=== PATIENT | female | born 1990 | race Caucasian/White ===

== ENCOUNTER 2020-09-12 14:39 | Emergency (ER) | payer OTHER, SELFPAY ==
--- NOTE | ~2020-09-12 | XR_ITS ---
EXAMINATION: XR chest 2V EXAM DATE: 09/12/2020 15:21 INDICATION: Left-sided chest pain, injury. Initial encounter. TECHNIQUE: Frontal and lateral projections of the chest obtained and reviewed. Comparison is made to prior examination from 07/14/2019. FINDINGS: The lungs are clear. There are no pleural effusions. The cardiomediastinal silhouette is within normal limits. There is no pneumothorax suspected. The bones and soft tissues are unremarkab le. Consider educating patient that even if there is a radiographically occult nondisplaced rib fra cture, there is no specific treatment other than to refrain from activity that prevents healing. IMPRESSION: No acute cardiopulmonary findings. Reviewed, dictated and finalized at location A.
[2020-09-12 14:46] VITALS: BP 120/82; PULSE 72; RESP 16; TEMP 36.7; O2SAT 100
--- NOTE | 2020-09-12 14:53 | ECG_ITS ---
Measurements Intervals [place] Rate: 70 P: -12 CA: 136 QRS: 72 QRSD: 87 T: 6 QT: 389 QTc: 422 Interpretive Statements SINUS RHYTHM BORDERLINE ST-T WAVE ABNORMALITY- INFERIOR LEADS BASELINE ARTIFACT- I, II, III, AVR, AVL, AVF BORDERLINE ECG Electronically Signed On 09-12-2020 15:30:30 CDT by Cesar Beasley D.O.
[2020-09-12 15:24] LABS: Basophils Percent Auto 0.4 % (0.2-1.2); Eosinophils Absolute Auto 0.1 K/mm3 (0-0.3); Hematocrit 41.1 % (37.0-47.0); Hemoglobin 13.8 g/dL (12.0-15.0); Immature Granulocyte Absolute 0.02 K/mm3 (0.00-0.031); Immature Granulocyte Percent A 0.3 % (0-0.5); Lymphocytes Absolute Auto 2.27 K/mm3 (0.9-3.2); Mean Corpuscular HGB Conc 33.6 g/dl (32-36); Mean Corpuscular Volume 95.4 fl (80-100); Mean Platelet Volume 10.4 fl (7.4-10.4); Monocytes Absolute Auto 0.4 K/mm3 (0.1-0.6); Monocytes Percent Auto 6.1 % (2.6-8.5); Neutrophils Absolute Auto 4.3 K/mm3 (1.3-6.7); Neutrophils Percent Auto 60.2 % (45.5-73.1); Platelet Count Result 285 k/mm3 (150-375); Red Blood Count 4.31 M/mm3 (4.2-5.4); White Blood Count 7.1 K/mm3 (4.5-10.0)
[2020-09-12 15:39] LABS: Anion Gap 4 mmol/L (8-16); Blood Urea Nitrogen 6 mg/dL (7-17); Calcium 9.1 mg/dL (8.4-10.2); Carbon Dioxide 27 mmol/L (22-30); Chloride 107 mmol/L (98-107); Estimated CRCL calculation 91 ml/min; Estimated Glomerular Filt Rate > 60; Glucose 87 mg/dL (65-105); Potassium 3.6 mmol/L (3.4-5.0); Sodium 138 mmol/L (137-145)
[2020-09-12 15:46] LABS: INR 0.9; Prothrombin Time 13.2 Seconds (11.1-14.7)
[2020-09-12 15:47] LABS: Partial Thromboplastin Time 28.9 SECONDS (22.3-36.8)
[2020-09-12 15:50] LABS: Troponin I < 0.012 ng/mL (0.000-0.034)
[2020-09-12 16:25] VITALS: PULSE 66
[2020-09-12 16:26] VITALS: BP 113/84; PULSE 66; RESP 16; TEMP 36.8; O2SAT 98
--- NOTE | 2020-09-12 16:49 | ED.CHESTPAIN ---
HPI - Chest Pain General Chief Complaint: Chest Pain Stated Complaint: injury to chest Time Seen by Provider: 09/12/20 16:18 Source: patient Mode of arrival: ambulatory Limitations: no limitations History of Present Illness HPI narrative: 30-year-old with no major medical problems here with complaints of left-sided chest pain for past 3 days. Patient states her 3-year-old jumped on her left side of her chest approximately 3 days ago and ever since then she has been having left-sided chest pain. She states that it is hard to take a deep breath because of the pain. She denies any shortness of breath, fever or chills. She states that her daughter is about 50 pounds. complaint: chest pain Onset: other (injury) Pain location: left chest Quality: aching Relieving factors: nothing Risk Factors Coronary artery disease risk factors: none Related Data Home Medications Medication Instructions Recorded Confirmed norethindrone-e.estradiol-iron 1 tablet PO DAILY 06/30/19 06/30/19 [07/19 (28)] Allergies Allergy/AdvReac Type Severity Reaction Status Date / Time No Known Allergies Allergy Verified 07/14/19 10:38 Review of Systems Review of Systems: All systems reviewed & are unremarkable except as noted in HPI and below Constitutional: Constitutional: Reports no additional constitutional complaints Eyes: Eyes: Reports no additional eye complaints ENT: Reports system reviewed and no additional complaints, except as documented Cardiovascular: Cardiovascular: Reports as per HPI Respiratory: Respiratory: Reports as per HPI Gastrointestinal: Gastrointestinal: Reports no additional gastrointestinal complaints Musculoskeletal: Musculoskeletal: Reports no additional musculoskeletal complaints Integumentary/Breasts: Skin/Breast: Reports system reviewed and no additional complaints, except as docu Neurologic: Reports system reviewed and no additional complaints, except as documented Psychiatric: Psychiatric: Reports no additional psychiatric complaints Exam Narrative: Exam Narrative: GENERAL: Well-appearing, well-nourished, and in no acute distress. HEAD: Normocephalic, atraumatic. EYES: PERRLA and EOMI. NECK: Supple. CHEST: Clear to auscultation. No respiratory distress. Left chest wall tenderness on palpation HEART: Regular rate and rhythm. No murmur heard. Normal peripheral pulses. ABDOMEN: Soft, nontender, nondistended, normal active bowel sounds. EXTREMITIES: Normal range of motion. No edema. SKIN: Warm, dry, no rash. NEURO: No focal deficits. Alert and oriented x3. PSYCH: Normal mood and affect. Course Course Emergency Course: Inform patient about her lab work, EKG and chest x-ray findings given history of thrombocytopenia more appears to be musculoskeletal advised her to take naproxen as prescribed. Vital Signs Vital signs: Vital Signs Temperature 36.7 C 09/12/20 14:46 Pulse Rate 72 09/12/20 14:46 Respiratory Rate 16 09/12/20 14:46 Blood Pressure 120/82 09/12/20 14:46 Pulse Oximetry 100 09/12/20 14:46 Temperature 36.8 C 09/12/20 16:26 Pulse Rate 66 09/12/20 16:26 Respiratory Rate 16 09/12/20 16:26 Blood Pressure 113/84 09/12/20 16:26 Pulse Oximetry 98 09/12/20 16:26 MDM - Chest Pain MDM Narrative Medical decision making narrative: Given history of left-sided chest pain I like to get EKG, CBC chemistry and troponin suspicion of CO is very minimal however with a history would like to get cardiac work-up. Differential Diagnosis Differential diagnosis: Likely fracture of rib, atypical chest pain and costochondritis Lab Data Result diagrams: 09/12/20 14:57 09/12/20 14:57 Labs: Lab Results 09/12/20 09/12/20 09/12/20 Range/Units 14:57 14:57 14:57 WBC 7.1 (4.5-10.0) K/mm3 RBC 4.31 (4.2-5.4) M/mm3 Hgb 13.8 (12.0-15.0) g/dL Hct 41.1 (37.0-47.0) % MCV 95.4 (80-100) fl MCH 32.0 (26-34) pg MCHC 3
[2020-09-12 17:30] VITALS: BP 120/77; PULSE 67; RESP 16; O2SAT 99
== END 2020-09-12 17:30 | disposition home or self-care (01) ==
PROVIDERS: Emergency Medicine; Emergency Provider Family Medicine; PCP Nurse Practitioner Family
DX: R07.89 Other chest pain (principal); W51.XXXA Accidental striking against or bumped into by another person, initial encounter; R94.31 Abnormal electrocardiogram [ECG] [EKG]
CPT/HCPCS: 36415; 71046; 80048; 84484; 85025; 85610; 85730; 93005; 99284

== ENCOUNTER 2022-12-15 21:23 | Emergency (ER) | payer OTHER, SELFPAY ==
[2022-12-15] VITALS (7 sets, daily range): BP systolic 123–135; BP diastolic 71–95; PULSE 63–69; RESP 18; TEMP 36.5; O2SAT 98–100
[2022-12-15 22:27] LABS: Basophils Percent Auto 0.2 % (0.2-1.2); Eosinophils Percent Auto 0.1 % (0-4.4); Hematocrit 42.3 % (37.0-47.0); Hemoglobin 14.3 g/dL (12.0-15.0); Immature Granulocyte Absolute 0.03 K/mm3 (0.00-0.031); Immature Granulocyte Percent A 0.3 % (0-0.5); Lymphocytes Percent Auto 18.5 % (18.3-44.2); Mean Corpuscular HGB Conc 33.8 g/dl (32-36); Mean Corpuscular Hemoglobin 32.1 pg (26-34); Mean Corpuscular Volume 95.1 fl (80-100); Mean Platelet Volume 9.8 fl (7.4-10.4); Monocytes Absolute Auto 0.4 K/mm3 (0.1-0.6); Monocytes Percent Auto 4.2 % (2.6-8.5); Neutrophils Absolute Auto 6.7 K/mm3 (1.3-6.7); Neutrophils Percent Auto 76.7 % (45.5-73.1); Platelet Count Result 322 k/mm3 (150-375); Red Blood Count 4.45 M/mm3 (4.2-5.4); Red Cell Distribution Width 12.9 % (11.5-14.5); White Blood Count 8.7 K/mm3 (4.5-10.0)
[2022-12-15] MEDS: SODIUM CHLORIDE 0.9% IV 1,000 ML 999 ML IV CONT (22:28)
[2022-12-15] MEDS: ONDANSETRON INJ 4 MG/2 ML VIAL IV PUSH (22:29)
[2022-12-15 22:37] LABS: Prothrombin Time 13.2 Seconds (11.1-14.7)
--- NOTE | 2022-12-15 22:38 | ED.GENADULT ---
HPI - General Adult General Chief complaint: GI Bleed <YAIMA Seymour Last Filed: 12/16/22 00:54> Stated complaint: abd pain, blood in stool <YAIMA Seymour Last Filed: 12/16/22 00:54> Time Seen by Provider: 12/15/22 21:49 <YAIMA Seymour Last Filed: 12/16/22 00:54> Source: patient <YAIMA Seymour Last Filed: 12/16/22 00:54> Mode of arrival: ambulatory <YAIMA Seymour Last Filed: 12/16/22 00:54> Limitations: no limitations <YAIMA Seymour Last Filed: 12/16/22 00:54> History of Present Illness HPI narrative: This is a 32-year-old female who presents to the ED with chief complaint of N/V/D beginning around 3 AM this morning. Patient states that she ate some suspect chicken enchiladas from [employer] the night before and feels like she may have food poisoning. She is here tonight because she continues to have nausea and noticed some bright red blood in her stools. She states she saw it on the toilet paper and a couple drops in the toilet. Reports generalized abdominal cramping. Denies fevers, chills, <YAIMA Seymour Last Filed: 12/16/22 00:54> Related Data Home medications: Home Medications Medication Instructions Recorded Confirmed amoxicillin 875 mg-potassium tablet 12/15/22 clavulanate 125 mg tablet chlorhexidine gluconate 0.12 % 12/15/22 mouthwash lidocaine HCl 2 % mucosal solution 12/15/22 (Lidocaine Viscous) <YAIMA Seymour Last Filed: 12/16/22 00:54> Allergies/adverse reactions: Allergies Allergy/AdvReac Type Severity Reaction Status Date / Time No Known Allergies Allergy Verified 12/15/22 21:44 <YAIMA Seymour Last Filed: 12/16/22 00:54> Review of Systems Review of Systems: CONSTITUTIONAL: Denies fever, chills, or sweats. EYES: Denies visual changes, redness, or discharge. ENT: Denies rhinorrhea, congestion, sore throat, or otalgia. CARDIOVASCULAR: Denies chest pain, palpitations, or edema. RESPIRATORY: Denies cough or dyspnea. GASTROINTESTINAL: Denies abdominal pain, nausea, vomiting, or diarrhea. GENITOURINARY: Denies dysuria or hematuria. SKIN: Denies rash or itching. MUSCULOSKELETAL: Denies back pain, joint pain, or myalgia. NEUROLOGIC: Denies headache, numbness, dizziness, or weakness. PSYCHIATRIC: Denies anxiety or depression. <Denis Driver PA-C - Last Filed: 12/16/22 00:54> Exam Narrative: GENERAL: Well-appearing, well-nourished, and in no acute distress. Resting comfortably. HEAD: Normocephalic, atraumatic. EYES: PERRLA and EOMI. ENT: Nares clear, no rhinorrhea or epistaxis. Mucous membranes moist. Oropharynx without tonsillar hypertrophy exudate or other lesions. NECK: Supple. No adenopathy or masses. CHEST: No respiratory distress. Clear to auscultation. No wheezes rales or rhonchi HEART: Regular rate and rhythm. No murmur heard. Normal peripheral pulses. ABDOMEN: Soft, nontender, nondistended, normal active bowel sounds. MSK: Normal range of motion. No edema. SKIN: Warm, dry, no rash. NEURO: Alert and oriented x3. No focal deficits. PSYCH: Normal mood and affect. <Denis Driver PA-C - Last Filed: 12/16/22 00:54> Course Course Emergency Course: Reevaluation 2353: Patient is feeling much better. Nausea resolved. Abdominal discomfort resolved. She states she is ready go home. <Denis Driver PA-C - Last Filed: 12/16/22 00:54> MOLD PRESSER/PA Physician Supervision This is a was performed by both a physician and an APC. I performed all aspects of the MDM as documented w/ the following additions: 32-year-old female presenting with nausea and vomiting. Abdominal exam is benign. Laboratory studies were unremarkable. She improved with symptomatic treatment was discharged.All questions answered. Patient in agreement w/ disposition. <Arnie Thakur MD - Last Filed: 12/16/22 01:10> Vital Signs Vital signs: Vital Signs Temperature 9
[2022-12-15 22:41] LABS: Alanine Aminotransferase 27 U/L (6-35); Albumin Level 4.4 g/dL (3.5-5.1); Alkaline Phosphatase 66 U/L (38-126); Anion Gap 7 mmol/L (8-16); Aspartate Amino Transferase 34 U/L (14-36); Bilirubin,Total 0.6 mg/dL (0.2-1.3); Blood Urea Nitrogen 9 mg/dL (7-17); Calcium 9.1 mg/dL (8.4-10.2); Carbon Dioxide 29 mmol/L (22-30); Chloride 103 mmol/L (98-107); Estimated CRCL calculation 111 ml/min; Estimated Glomerular Filt Rate > 60; Glucose 99 mg/dL (65-110); Lipase 28 U/L (23-300); Potassium 3.7 mmol/L (3.4-5.0); Sodium 139 mmol/L (137-145)
== END 2022-12-16 00:27 | disposition home or self-care (01) ==
PROVIDERS: Emergency Provider Physician Assistant; PCP Nurse Practitioner Family
DX: T78.1XXA Other adverse food reactions, not elsewhere classified, initial encounter (principal)
CPT/HCPCS: 36415; 80053; 83690; 85025; 85610; 96361; 96365; 96375; 99284; J0131; J2405; J7030

== ENCOUNTER 2023-04-12 15:28 | Emergency (ER) | payer OTHER, SELFPAY ==
[2023-04-12 15:35] VITALS: BP 121/73; PULSE 85; RESP 16; TEMP 36.7; O2SAT 99
--- NOTE | 2023-04-12 15:49 | ED.DENTAL ---
HPI - Dental/Oral General Chief complaint: Dental/Oral Stated complaint: dental pain Time Seen by Provider: 04/12/23 15:35 Source: patient Mode of arrival: ambulatory Limitations: no limitations History of Present Illness HPI Narrative: 33 years old white female came to the emergency room with pain at the right upper tooth notes recorded in the presence of the physician performing the services were completed by the scribe and the documentation accurately reflects the services provided. 2 to 3 days ago. Started on Augmentin at urgent care yesterday and ibuprofen. Woke up this morning with slightly swelling and more pain at that area. History of dental extraction on the other side 2 weeks ago. Patient denies any headache, fever, chills, difficulty swallowing or breathing. Teeth map: 1. Dental decay, fractured, Related Data Home Medications Medication Instructions Recorded Confirmed amoxicillin 875 mg-potassium tablet 12/15/22 clavulanate 125 mg tablet chlorhexidine gluconate 0.12 % 12/15/22 mouthwash lidocaine HCl 2 % mucosal solution 12/15/22 (Lidocaine Viscous) Allergies Allergy/AdvReac Type Severity Reaction Status Date / Time No Known Allergies Allergy Verified 12/15/22 21:44 Review of Systems Review of Systems: All systems reviewed & are unremarkable except as noted in HPI and below Exam Narrative: General appearance: Well-developed, well-nourished Skin: Normal color Head: Normocephalic, nontraumatic Eyes: Clear conjunctiva ENT: Tooth #3 the right upper side broken, decayed, surrounded by inflamed gum, no abscess formation at this time. Neck: Supple, nontender Neurologic: Alert and oriented ?3, [employer] is normal as tested, no gross motor deficit Course Vital Signs Vital signs: Vital Signs Temperature 36.7 C 04/12/23 15:35 Pulse Rate 85 04/12/23 15:35 Respiratory Rate 16 04/12/23 15:35 Blood Pressure 121/73 04/12/23 15:35 Pulse Oximetry 99 04/12/23 15:35 Oxygen Delivery Room Air 04/12/23 15:35 Temperature 36.7 C 04/12/23 15:35 Pulse Rate 85 04/12/23 15:35 Respiratory Rate 16 04/12/23 15:35 Blood Pressure 121/73 04/12/23 15:35 Pulse Oximetry 99 04/12/23 15:35 Oxygen Delivery Room Air 04/12/23 15:35 MDM - Dental/Oral MDM Narrative Medical decision making narrative: Patient presents with worsening dental pain, physical examination showed irritated and swollen gum around the tooth, no abscess mission at this time. I plan to discontinue Augmentin and to start patient on penicillin plus Flagyl for possible impending dental abscess, patient was notified to call her dentist today for appointment and to continue ibuprofen 800 mg every 8 hours Differential Diagnosis Differential diagnosis: Likely dental caries, toothache and dental abscess Critical Care Time Critical Care Time Critical Care Time: No Discharge Plan Discharge Clinical Impression: Dental caries Patient Disposition: Home, Self-Care Condition: Stable Instructions: Antibiotic Form, Toothache (ED) Additional Instructions: Return if symptoms are worsening , call your dentist for appointment, take ibuprofen 800 mg every 8 hours as needed. Discontinue Augmentin Prescriptions: New metronidazole 500 mg tablet 250 mg PO Q12H 14 Days Qty: 14 0RF penicillin V potassium 500 mg tablet 500 mg PO Q12H Qty: 20 0RF No Action naproxen 500 mg tablet 500 mg PO BID Qty: 14 0RF lidocaine HCl [Lidocaine Viscous] 2 % solution amoxicillin-pot clavulanate 875-125 mg tablet chlorhexidine gluconate 0.12 % mouthwash ondansetron 4 mg tablet,
[2023-04-12 16:25] VITALS: BP 123/76; PULSE 73; RESP 16; O2SAT 100
== END 2023-04-12 16:24 | disposition home or self-care (01) ==
LOC: ANHED 16:01
PROVIDERS: Emergency Provider Emergency Medicine; PCP Nurse Practitioner Family
DX: K02.9 Dental caries, unspecified (principal)
CPT/HCPCS: 99283

== ENCOUNTER 2024-09-26 14:25 | Emergency (ER) | payer OTHER, SELFPAY ==
--- OUTSIDE RECORDS SUMMARY | 2024-09-26 14:27 | XMS_ITS | Data Portability ---
Author Organization [facility] [place] Address [address] [place] [address] Care Team Providers Care Steerer Name Role Phone SARITAMCKENNA Primary Care Provider Assessment Encounter Date Assessment Date Assessment LastModified by Organization Details LastModified Time 09/26/2020 09/26/2020 Annual gynecological exam performed. Patient will come back in a year unless there are new symptoms. Not available 09/26/2020 14:19:05 09/10/2021 09/10/2021 Annual gynecological exam performed. Patient will come back in a year unless there are new symptoms. Not available 09/10/2021 16:02:14 02/27/2023 02/27/2023 Annual gynecological exam performed. Patient will come back in a year unless there are new symptoms. [email or web address] Not available 02/27/2023 10:17:39 Plan of Treatment Reminders Order Date Submit Date Provider Last Modified By Organization Details Last Modified Time Details Appointments None recorded . Lab hbcab (hepatit is B core Ab) igm, serum 2022 023 [facility] (Lab), [address], [place], [address], 3 14:50:01 HBsAg (hepatit is B surface Ag), serum 2022 023 [facility] (Lab), [address], [place], [address], 3 14:49:59 hepatiti s C virus Ab, serum 2022 023 [facility] (Lab), [address], [place], [address], 3 14:50:00 unlisted lab - HIV 1/2 antigen/ antibody , reflex confirma tion 2022 023 [facility] (Lab), [address], [place], [address], 3 14:49:58 RPR (rapid plasma reagin), serum 2022 023 [facility] (Lab), [address], [place], [address], 3 14:50:01 CBC w/ auto diff 2022 023 [facility] (Lab), [address], [place], [address], 3 14:49:59 CMP, serum or plasma 2022 023 [facility] (Lab), [address], [place], [address], 3 14:49:58 lipid panel, blood 2022 023 [facility] (Lab), [address], [place], [address], 3 14:49:57 HbA1c (hemoglo bin A1c), blood 2022 023 [facility] (Lab), [address], [place], [address], 3 14:50:00 TSH, serum or plasma 2022 023 [facility] (Lab), [address], [place], [address], 3 14:50:00 vitamin D, 25-hydro xy, total, serum 2022 023 [facility] (Lab), [address], [place], [address], 3 14:50:02 CBC w/ auto diff 2021 022 [facility] (Lab), [address], [place], [address], 2 04:07:45 CMP, serum or plasma 2021 022 [facility] (Lab), [address], [place], [address], 04:07:44 lipid panel, blood 2021 022 [facility] (Lab), [address], [place], [address], 2 04:07:44 TSH, serum or plasma 2021 022 [facility] (Lab), [address], [place], [address], 2 04:07:45 vitamin D, 25-hydro xy, total, serum 2021 022 [facility] (Lab), [address], [place], [address], 2 04:07:46 CBC w/ auto diff [address] (Lab), [address], [place], [address], 14:47:30 CMP, serum or plasma [address] (Lab), [address] [place], [address], 1 14:47:30 lipid panel, blood [address] (Lab), [address] [facility], [place], [address], 1 14:47:30 TSH, serum or plasma [address] (Lab), [address] [facility], [place], [address], 1 14:47:30 vitamin D, 25-hydro xy, total, serum [address] (Lab), [address] [facility], [place], [address], 1 14:47:30 Referral None recorded . Procedures None recorded . Surgeries None recorded . Imaging None recorded . Medication Orders John Fe 07/19 (28) 1 mg-20 mcg (21)/75 mg (7) tablet 2022 023 [facility], [address] [place] [address], [address], 3 10:34:37 Loestrin Fe 07/19 (28-Day) 1 mg-20 mcg (21)/75 mg (7) tablet 2020 021 [facility], [address] [place] [address], [address], 3 10:18:00 Patient TargetsNo targets recorded. Patient InstructionsNo instructions recorded. Reason for Referral None Reported. Results Created Date Observation Date Name Description Value Unit Range Abnormal Flag Note LastModifiedBy Organization Detail LastModifiedTime 09/27/19 21 09/26/2020 pap, IG + refle x HPV if ASC-U image guided Pap, reflex HPV ASCUS only SEE RESULT S BELOW CASE REPOR T: Cytol ogy Gynec ologi gosia Repor t Case: [id number] Autho arnulfo ramos Provi ursula: Brice Diaz MD Colle cted: 09/26 1447 Order ing Locat ion: [place] Patho logy Recei kristy: 09/27 0352 First Scree n: Debbie Slade Speci men: Scree jaja Pap - Image d, Cervi x STATE MENT OF ADEQU ACY: Satis facto ry for evalu ation Trans forma tion zone compo nent prese nt FINAL DIAGN OSIS: Negat delano for Intra epith elial Lesio n or Malig edel (NIL) Shift in juan sugge stive of bacte rial vagin osis Elect victoriano beasley vitaliy d by Debbie Slade on 2020 at 3:38 PM ----- ----- ----- ----- ----- ----- ----- ----- ----- ----- ----- ----- ----- ----- ----- ----- ----- ---- CHART ABLE COMME NT: Note: This speci men was revie wed by a Cytot echno logis t and/o r Patho logis t (as indic ated in this repor t) after evalu ation using the Thinp rep Imagi ng Syste m. CLINI GOSIA INFOR MATIO N: Menst rual Statu s: LMP (if appli cable ): 2020 Clini gosia Histo ry/Pr eviou s Pap: Type of Neopl marilyn (if appli cable ): Other Histo ry: Hormo ean (if appli cable ): PAP EDUCA PATRICA L NOTE: The Pap Test is a scree jaja test with an inher ent false negat delano rate. Liqui d-bas e sampl ing may decre ase, but will not elimi kapil, false negat delano resul ts. A negat delano resul t does not precl ude the prese nce and/o r devel opmen t of disea se, since the prese nce of abnor mal cells in the sampl e depen ds on the locat ion of the lesio n and sampl ing techn ique. Gema nued regul ar scree jaja is the best metho d of cance r preve ntion . If repor ellis cytol ogic findi ng do not corre late with physi gosia and/o r histo rical findi ngs, furth er inves tigat ion is recom romina d, as clini delfina meneses nted. Not Available [facility] (Lab) [address] [place], [address], 09/27/2020 16:41:14 09/11/19 22 09/10/2021 LIPID PANEL ,AMA (LDL- CALC) total cholesterol 158 mg/dL 0-199 Not Available [facility] (Lab) [address] [place], [address], 09/11/2021 04:07:44 09/11/19 22 09/10/2021 LIPID PANEL ,AMA (LDL- CALC) triglyceride s 55 mg/dL 0.00-1 50.00 NCEP Refer ence Value s for Trigl yceri danyelle: Nara l: <150 mg/dL Borde rline High: 150 - 199 mg/dL High: 200 - 499 mg/dL Very High: >/= 500 mg/dL Not Available [facility] (Lab) [address] [place], [address], 09/11/2021 04:07:44 09/11/19 22 09/10/2021 LIPID PANEL ,AMA (LDL- CALC) HDL cholesterol 58 mg/dL >40 Not Available [facility] (Lab) [address] [place], [address], 09/11/2021 04:07:44 09/11/19 22 09/10/2021 LIPID PANEL ,AMA (LDL- CALC) LDL cholesterol 89 mg/dL 0-99 Cutof f value s recom romina d by the Natio nal Gillian stero l Educa tion Progr am: CHEL ABLE: Gillian stero l <200 mg/dL LDL <100 mg/dL BORDE RLINE : Gillian stero l 200-2 39 mg/dL LDL 101-1 59 mg/dL HIGHE R RISK: Gillian stero l >240 mg/dL LDL >160 mg/dL , HDL <40 mg/dL Not Available [facility] (Lab) [address] [place], [address], 09/11/2021 04:07:44 09/11/19 22 09/10/2021 LIPID PANEL ,AMA (LDL- CALC) non-HDL cholesterol 100 mg/dL no refere nce range A reaso nable goal for non-H DL gillian stero l is one that is 30 mg/dL highe r than the LDL gillian stero l goal. Not Available [facility] (Lab) [address] [facility], [place], [address], 09/11/2021 04:07:44 09/11/19 22 09/10/2021 LIPID PANEL ,AMA (LDL- CALC) chol/HDL ratio 2.7 . 0.0-5. 0 Not Available [facility] (Lab) [address] [place], [address], 09/11/2021 04:07:44 09/11/19 22 09/10/2021 CMP(C OMPRE HENSI VE METAB OLIC PANEL ) sodium 143 mmol/ L 133-14 6 Not Available [facility] (Lab) [address] [place], [address], 09/11/2021 04:07:44 09/11/19 22 09/10/2021 CMP(C OMPRE HENSI VE METAB OLIC PANEL ) potassium 3.6 mmol/ L 3.5-5. 1 Not Available [facility] (Lab) [address] [place], [address], 09/11/2021 04:07:44 09/11/19 22 09/10/2021 CMP(C OMPRE HENSI VE METAB OLIC PANEL ) chloride 103 mmol/ L 98-107 Not Available [facility] (Lab) [address] [place], [address], 09/11/2021 04:07:44 09/11/19 22 09/10/2021 CMP(C OMPRE HENSI VE METAB OLIC PANEL ) carbon dioxide 31 mmol/ L 21-31 Not Available [facility] (Lab) [address] [facility], [place], [address], 09/11/2021 04:07:44 09/11/19 22 09/10/2021 CMP(C OMPRE HENSI VE METAB OLIC PANEL ) anion gap 9 mmol/ L 4-13 Not Available [facility] (Lab) [address] [facility], [place], [address], 09/11/2021 04:07:44 09/11/19 22 09/10/2021 CMP(C OMPRE HENSI VE METAB OLIC PANEL ) blood urea nitrogen 8 mg/dL 7-25 Not Available [facility] (Lab) [address] [facility], [place], [address], 09/11/2021 04:07:44 09/11/19 22 09/10/2021 CMP(C OMPRE HENSI VE METAB OLIC PANEL ) creatinine 0.93 mg/dL 0.60-1 .30 Not Available [facility] (Lab) [address] [facility], [place], [address], 09/11/2021 04:07:44 09/11/19 22 09/10/2021 CMP(C OMPRE HENSI VE METAB OLIC PANEL ) egfrcr (CKD-epi 2020) 85 mL/mi n/1.7 3_m2 >=60 Not Available [facility] (Lab) [address] [facility], [place], [address], 09/11/2021 04:07:44 09/11/19 22 09/10/2021 CMP(C OMPRE HENSI VE METAB OLIC PANEL ) calcium 9.6 mg/dL 8.3-10 .5 Not Available [facility] (Lab) [address] [facility], [place], [address], 09/11/2021 04:07:44 09/11/19 22 09/10/2021 CMP(C OMPRE HENSI VE METAB OLIC PANEL ) glucose 56 mg/dL 70-100 low Not Available [facility] (Lab) [address] [facility], [place], [address], 09/11/2021 04:07:44 09/11/19 22 09/10/2021 CMP(C OMPRE HENSI VE METAB OLIC PANEL ) protein, total 7.1 g/dL 6.4-8. 3 Not Available [facility] (Lab) [address] [facility], [place], [address], 09/11/2021 04:07:44 09/11/19 22 09/10/2021 CMP(C OMPRE HENSI VE METAB OLIC PANEL ) albumin 4.3 g/dL 3.5-5. 0 Not Available [facility] (Lab) [address] [facility], [place], [address], 09/11/2021 04:07:44 09/11/19 22 09/10/2021 CMP(C OMPRE HENSI VE METAB OLIC PANEL ) ALT 14 units /L 9-43 Not Available [facility] (Lab) [address] [facility], [place], [address], 09/11/2021 04:07:44 09/11/19 22 09/10/2021 CMP(C OMPRE HENSI VE METAB OLIC PANEL ) alkaline phosphatase 86 units /L 34-104 Not Available [facility] (Lab) [address] [place], [address], 09/11/2021 04:07:44 09/11/19 22 09/10/2021 CMP(C OMPRE HENSI VE METAB OLIC PANEL ) AST 14 units /L 13-39 Not Available [facility] (Lab) [address] [place], [address], 09/11/2021 04:07:44 09/11/19 22 09/10/2021 CMP(C OMPRE HENSI VE METAB OLIC PANEL ) bilirubin, total 0.3 mg/dL 0.2-1. 2 Not Available [facility] (Lab) [address] [facility], [place], [address], 09/11/2021 04:07:44 09/11/19 22 09/10/2021 TSH, REFLE X FREE T4 TSH 0.59 uIU/m L 0.30-5 .33 Not Available [facility] (Lab) [address] [facility], [place], [address], 09/11/2021 04:07:45 09/11/19 22 09/10/2021 CBC W/DIF F WBC 7.7 10'3/ uL 3.6-10 .2 Not Available [facility] (Lab) [address] [facility], [place], [address], 09/11/2021 04:07:45 09/11/19 22 09/10/2021 CBC W/DIF F RBC 4.30 10'6/ uL (based on docume nted legal sex) 4.10-5 .30 Not Available [facility] (Lab) [address] [facility], [place], [address], 09/11/2021 04:07:45 09/11/19 22 09/10/2021 CBC W/DIF F HGB 13.4 g/dL (based on docume nted legal sex) 11.9-1 5.8 Not Available [facility] (Lab) [address] [facility], [place], [address], 09/11/2021 04:07:45 09/11/19 22 09/10/2021 CBC W/DIF F HCT 41.7 % (based on docume nted legal sex) 37.4-4 8.3 Not Available [facility] (Lab) [address] [facility], [place], [address], 09/11/2021 04:07:45 09/11/19 22 09/10/2021 CBC W/DIF F MCV 96.0 fL 82.0-9 9.0 Not Available [facility] (Lab) [address] [facility], [place], [address], 09/11/2021 04:07:45 09/11/19 22 09/10/2021 CBC W/DIF F MCH 31.0 pg 27.0-3 3.0 Not Available [facility] (Lab) [address] [facility], [place], [address], 09/11/2021 04:07:45 09/11/19 22 09/10/2021 CBC W/DIF F MCHC 32.0 g/dL 32.0-3 6.0 Not Available [facility] (Lab) [address] [facility], [place], [address], 09/11/2021 04:07:45 09/11/19 22 09/10/2021 CBC W/DIF F RDW 13.0 % 11.0-1 5.0 Not Available [facility] (Lab) [address] [facility], [place], [address], 09/11/2021 04:07:45 09/11/19 22 09/10/2021 CBC W/DIF F plt 405 10'3/ uL 150-45 0 Not Available [facility] (Lab) [address] [facility], [place], [address], 09/11/2021 04:07:45 09/11/19 22 09/10/2021 CBC W/DIF F MPV 9.9 fL 9.8-12 .7 Not Available [facility] (Lab) [address] [facility], [place], [address], 09/11/2021 04:07:45 09/11/19 22 09/10/2021 CBC W/DIF F NRBC's 0.00 % 0 Not Available [facility] (Lab) [address] [facility], [place], [address], 09/11/2021 04:07:45 09/11/19 22 09/10/2021 CBC W/DIF F absolute NRBCs 0.0 10'3/ uL 0 Not Available [facility] (Lab) [address] [facility], [place], [address], 09/11/2021 04:07:45 09/11/19 22 09/10/2021 CBC W/DIF F neutrophils 54.0 % 37.0-7 2.0 Not Available [facility] (Lab) [address] [facility], [place], [address], 09/11/2021 04:07:45 09/11/19 22 09/10/2021 CBC W/DIF F lymphocytes 37.0 % 16.0-4 8.0 Not Available [facility] (Lab) [address] [facility], [place], [address], 09/11/2021 04:07:45 09/11/19 22 09/10/2021 CBC W/DIF F monocytes 7.0 % 4.0-14 .0 Not Available [facility] (Lab) [address] [facility], [place], [address], 09/11/2021 04:07:45 09/11/19 22 09/10/2021 CBC W/DIF F eosinophils 2.0 % 0.0-9. 0 Not Available [facility] (Lab) [address] [facility], [place], [address], 09/11/2021 04:07:45 09/11/19 22 09/10/2021 CBC W/DIF F basophils 0.0 % 0.0-2. 0 Not Available [facility] (Lab) [address] [facility], [place], [address], 09/11/2021 04:07:45 09/11/19 22 09/10/2021 CBC W/DIF F immature granulocytes 0.0 % no define d refere nce range Not Available [facility] (Lab) [address] [place], [address], 09/11/2021 04:07:45 09/11/19 22 09/10/2021 CBC W/DIF F absolute neutrophils 4.2 10'3/ uL 1.1-6. 0 Not Available [facility] (Lab) [address] [facility], [place], [address], 09/11/2021 04:07:45 09/11/19 22 09/10/2021 CBC W/DIF F absolute lymphocytes 2.8 10'3/ uL 0.7-3. 4 Not Available [facility] (Lab) [address] [facility], [place], [address], 09/11/2021 04:07:45 09/11/19 22 09/10/2021 CBC W/DIF F absolute monocytes 0.5 10'3/ uL 0.3-1. 0 Not Available [facility] (Lab) [address] [place], [address], 09/11/2021 04:07:45 09/11/19 22 09/10/2021 CBC W/DIF F absolute eosinophils 0.1 10'3/ uL 0.0-0. 6 Not Available [facility] (Lab) [address] [facility], [place], [address], 09/11/2021 04:07:45 09/11/19 22 09/10/2021 CBC W/DIF F absolute basophils 0.0 10'3/ uL 0.0-0. 1 Not Available [facility] (Lab) [address] [place], [address], 09/11/2021 04:07:45 09/11/19 22 09/10/2021 CBC W/DIF F absolute immature granulocytes 0.00 10'3/ uL 0.00-0 .10 2021 2:49 AM: P indic ates parti al resul ts on a panel have been relea sed. Addit ional resul ts will follo w. 2021 2:49 AM: This resul t has been final verif ied. No addit ional or rivas ed resul ts are expec ellis. Not Available [facility] (Lab) [address] [place] [facility] [place], [address], 09/11/2021 04:07:45 09/11/19 22 09/10/2021 VITAM IN D, 25-OH (TOTA L D2/D3 ) vitamin D, 25-hydroxy, total 7.3 NG/mL 30-80 low NOTE: Defic iency : <20 ng/mL Insuf ficie ncy: 20-29 ng/mL Optim um Level : 30-80 ng/mL Possi ble Toxic ity: >80 ng/mL Most patie nts with toxic ity have level s >150 ng/mL . Not Available [facility] (Lab) [address] [facility], [place], [address], 09/11/2021 04:07:46 09/11/19 22 09/10/2021 IMAGE GUIDE D PAP AND HPV REGAR DLESS image guided Pap, HPV regardless of Pap result SEE RESULT S BELOW CASE REPOR T: Cytol ogy Gynec ologi gosia Repor t Case: [id number] Autho arnulfo g Provi ursula: Brice Diaz MD Colle cted: 09/10 1705 Order ing Locat ion: [place] Patho logy Recei kristy: 09/11 0254 First Scree n: Alexander Otto am, CT Speci men: Scree jaja Pap - Image d, Cervi x STATE MENT OF ADEQU ACY: Satis facto ry for evalu ation Trans forma tion zone compo nent prese nt FINAL DIAGN OSIS: Negat delano for Intra epith elial Lesio n or Marcos hollingsworth (NIL) . Shift in juan sugge stive of bacte rial vagin osis. Elect victoriano beasley vitaliy d by Alexander Otto am, CT on 2021 at 1:18 PM ----- ----- ----- ----- ----- ----- ----- ----- ----- ----- ----- ----- ----- ----- ----- ----- ----- ---- HPV RESUL TS: HPV mRNA E6/E7 : No HPV mRNA Detec ellis NOTE: This high risk HPV mRNA assay detec ts fourt een high- risk HPV types (16, 18, 31, 33, 35, 39, 45, 51, 52, 56, 58, 59, 66, 68) witho ut diffe renti ation . COMME NT: Note: This speci men was revie wed by a Cytot echno logis t and/o r Patho logis t (as indic ated in this repor t) after evalu ation using the Thinp rep Imagi ng Syste m. CLINI GOSIA INFOR MATIO N: Menst rual Statu s: LMP (if appli cable ): Clini gosia Histo ry/Pr eviou s Pap: Type of Neopl marilyn (if appli cable ): Signi fican t Clini gosia Findi ngs: Other Histo ry: Hormo ean (if appli cable ): PAP EDUCA PATRICA L NOTE: The Pap Test is a scree jaja test with an inher ent false negat delano rate. Liqui d-bas ed sampl ing may decre ase, but will not elimi kapil, false negat delano resul ts. A negat delano resul t does not precl ude the prese nce and/o r devel opmen t of disea se, since the prese nce of abnor mal cells in the sampl e depen ds on the locat ion of the lesio n and sampl ing techn ique. Gema nued regul ar scree jaja is the best metho d of cance r preve ntion . If repor ellis cytol ogic findi ng do not corre late with physi gosia and/o r histo rical findi ngs, furth er inves tigat ion is recom romina d, as clini delfina meneses nted. Not Available [facility] (Lab) [address], [place], [address], 09/17/2021 14:21:13 02/29/20 23 02/28/2023 VITAM IN D, 25-OH (TOTA L D2/D3 ) vitamin D, 25-hydroxy, total 21.7 NG/mL 30.0-1 00.0 low Sugge stive of Defic iency : <20 ng/mL Sugge stive of Insuf ficie ncy: 20-29 ng/mL Sugge stive of Suffi cienc y: 30-10 0 ng/mL Sugge stive of Toxic ity: >150 ng/mL Not Available [facility] (Lab) [address] [facility], [place], [address], 03/05/2023 12:58:32 Result Notes None recorded. Problems Name Problem SNOMED Code Status Onset Date Resolution Date Notes Provider Name and Address Organization Details Recorded Time Pregnanc y, childbir th and puerperi um finding Completed 201609/26/2020 Encntr for suprvsn of normal first preg, second trimeste r;Record ed Elsewher e: No Locat ion: [facility] S ource: EHR Custodial Services Manager matt: N Colt ce ID: 0001 Darrin lable Time: 11:30:00 AM [facility] 14:20:10 Pregnanc y, childbir th and puerperi um finding Completed 201609/26/2020 Encntr for suprvsn of normal first preg, third trimeste r;Record ed Elsewher e: No Locat ion: [facility] S ource: EHR Custodial Services Manager matt: N Colt ce ID: 0001 Darrin lable Time: 01:30:00 PM [facility], [facility] 14:20:12 Pregnanc y, childbir th and puerperi um finding Completed 201609/26/2020 Encntr for suprvsn of normal first preg, first trimeste r;Record ed Elsewher e: No Locat ion: [facility] S ource: EHR Custodial Services Manager matt: N Parthati ce ID: 0001 Darrin lable Time: 03:45:[address] [facility] 14:20:[address] Concept Completed 201609/26/2020 Maternal care for oth abnormal ity and damage, unsp;Rec orded Elsewher e: No Locat ion: Digna franko [facility] S ource: EHR Custodial Services Manager matt: N Parthati ce ID: 0001 Darrin lable Time: 01:00:00 PM Ummmarya cunha, [facility] 14:20:19 Pregnanc y detectio n examinat ion Completed 201609/26/2020 Encounte r for pregnanc y test, result positive ;Recorde d Elsewher e: No Locat ion: [facility] franko [facility] S ource: EHR Custodial Services Manager matt: N Parthati ce ID: 0001 Darrin lable Time: 03:30:00 PM Umm cunha, [facility] 14:20:[address] Concept Completed 201809/26/2020 Encntr for general adult medical exam w/o abnormal findings ;Recorde d Elsewher e: No Locat ion: [facility] S ource: EHR Custodial Services Manager matt: N Parthati ce ID: 0001 Darrin lable Time: 01:30:00 PM Umm cunha, [facility] 14:20:[address] Concept Completed 201609/26/2020 Encntr for urogynaecologist exam (general ) (routine ) w/o abn findings ;Recorde d Elsewher e: No Locat ion: [facility] S ource: EHR Custodial Services Manager matt: N Parthati ce ID: 0001 Darrin lable Time: 03:30:00 PM Ummmarya cunha, [facility] 14:20:23 Gestatio n period, 21 weeks [id number] Completed 201609/26/2020 21 weeks gestatio n of pregnanc y;Record ed Elsewher e: No Locat ion: [facility] franko [facility] S ource: EHR Custodial Services Manager matt: N Practi ce ID: 0001 Darrin lable Time: 01:00:00 PM Umm cunha [facility] 14:19:47 Single liveborn born in hospital by vaginal delivery [id number] Completed 201709/26/2020 Single liveborn infant vaginall y delivere d in hospital ;Recorde d Elsewher e: No Locat ion: [facility] S ource: EHR Custodial Services Manager matt: N Practi ce ID: 0001 Darrin lable Time: 01:30:00 PM Umm cunha [facility] 14:20:17 Nausea and vomiting [id number] Completed 201609/26/2020 Nausea w/ vomiting ;Recorde d Elsewher e: No Locat ion: [facility] S ource: EHR Custodial Services Manager matt: N Practi ce ID: 0001 Darrin lable Time: 03:45:00 PM Umm cunha [facility] 14:19:58 Clinical finding Completed 201609/26/2020 state, incident al;Pract ice ID: 0001 [facility]mm [facility] 14:19:44 Normal pregnanc y in multigra michelle [id number] Completed 201609/26/2020 Encounte r for suprvsn of normal pregnanc y, third trimeste r;Practi ce ID: 0001 [facility], [facility] 14:20:00 Group B streptoc occus infectio n in mother complica ting childbir [id number] Completed 201609/26/2020 Streptoc occus B [facility];Pract ice ID: 0001 [facility] 14:19:53 Single live [id number] Completed 201609/26/2020 Single live ;Pr actice ID: [id number] [facility], [facility] 14:20:15 Gestatio n period, 38 weeks [id number] Completed 201609/26/2020 38 weeks gestatio n of pregnanc y;Practi ce ID: [id number] [facility], [facility] 14:19:50 Lochia finding Completed 201709/26/2020 Encounte r for routine postpart um follow-u p;Practi ce ID: 0001 [facility], [facility] 14:19:56 Problem Notes None recorded. Procedures Surgical History Date Name Laterality Status Provider Name and Address Organization Details Recorded Time 09/10/2021 Date of Last Pap Smear completed [facility]y [facility] 10/24/2021 16:23:12 Imaging Results None recorded. Procedure Notes None recorded. Medical Equipment None Reported. Allergies No known drug allergies Medications Name Sig Start Date Stop Date Status Note LastModified by Organization Details LastModified Time promethaz ine 25 mg tablet take 1 tablet by oral route every 6 hours as needed 07/28 completed Prescrib ed Elsewher e: No Locat ion: [facility] odify By: pedro caballerountmercedes DateTime : 01/17/20 17 02:36:34 PM Not Available Not Available Not Available Depo-Prov era 150 mg/mL intramusc ular syringe inject 1 millilit er by intramus cular route every 3 months 07/28 completed Prescrib ed Elsewher e: No Locat ion: [facility] M odify By: pedro caballerounter DateTime : 07/09/19 18 01:30:00 PM Not Available Not Available Not Available cholecalc iferol (vitamin D3) 1,250 mcg (50,000 unit) capsule Take 1 capsule every week by oral route. 2022 active Not Available Not Available Not Avai lable John Fe 07/19 (28) 1 mg-20 mcg (21)/75 mg (7) tablet Take 1 tablet by oral route daily 2023 active Not Available Not Available Not Avai lable Vitals Date Recorded Body height Body mass index (BMI) Body weight Systolic blood pressure Diastolic blood pressure Provider Name and Address Organization Details Last Updated DateTime 09/26/2020 157.48 cm 28 kg/m2 92298.63 g 129 mm[Hg] 85 mm[Hg] [facility] 1 14:19:35 Date Recorded Body height Body mass index (BMI) Body weight Systolic blood pressure Diastolic blood pressure Provider Name and Address Organization Details Last Updated DateTime 09/10/2021 157.48 cm 29.6 kg/m2 89049.96 g 125 mm[Hg] 79 mm[Hg] [facility] 2 16:02:55 Date Recorded Body height Body mass index (BMI) Body weight Systolic blood pressure Diastolic blood pressure Provider Name and Address Organization Details Last Updated DateTime 02/27/2023 157.48 cm 31.6 kg/m2 12808.48 g 107 mm[Hg] 70 mm[Hg] Estefania Colvin [facility] 3 10:17:56 Social History Question Answer Notes LastModified by Organizat ion Details LastModified Time Tobacco Smoking Status Former Smoker [facility] 09/26/2020 14:21:27 What Is Your Level Of Alcohol Consumption? Occasional Information not available 10/24/2021 Are You Blind Or Do You Have Difficulty Seeing? No Information not available 10/24/2021 What Is Your Level Of Caffeine Consumption? Occasional Information not available 10/24/2021 Are You Deaf Or Do You Have Serious Difficulty Hearing? No Information not available 10/24/2021 What Type Of Diet Are You Following? REGULAR Information not available 10/24/2021 Do You Use Your Seat Belt Or Car Seat Routinely? Yes Information not available 10/24/2021 Do You Have Smoke And Carbon Monoxide Detectors In Your Home? Yes Information not available 10/24/2021 Do You Feel Stressed (tense, Restless, Nervous, Or Anxious, Or Unable To Sleep At Night)? [id number] Information not available 10/24/2021 Do You Use Any Illicit Or Recreational Drugs? No Information not available 10/24/2021 Do You Use Sunscreen Routinely? Yes Information not available 10/24/2021 Sex: Unknown Functional Status Question Answer Note LastModified by Organizat ion Details LastModified Time Do you have difficulty walking or climbing stairs? No Information not available 10/24/2021 Are you able to walk? YESWOREST Information not available 10/24/2021 Are you able to care for yourself? Yes Information not available 10/24/2021 Do you have difficulty dressing or bathing? No Information not available 10/24/2021 What is your exercise level? Occasional Information not available 10/24/2021 Mental Status None recorded. Family History Relationship Description Onset Age of this Age Resolved Age Notes LastModified by Organization Details LastModified Time Mother Diabetes mellitus [email or web address] Not available 2020 18:28:48 Mother Cyst of ovary [email or web address] Not available 2020 18:29:05 Mother Asthma Not available 08/22/2020 18:29:12 Mother Hypertensive disorder [email or web address] Not available 2020 18:29:21 Father Hyperlipidem ia [email or web address] Not available 2020 18:29:35 Father Hypertensive disorder [email or web address] Not available 2020 18:29:41 Maternal Grandmother Malignant tumor of lung [email or web address] Not available 2020 18:29:55 Medical History Condition Response Allergies (Food, seasonal, environmental ) N Other Y Breast Cancer N Drug/Latex Allergies/Reactions N Blood Transfusion N Dermatologic Disorders N Lung Disease N Defects or Inherited Disease N Breast Problem N Gestational Diabetes N Hematologic disorders N Anesthesia Complications N History of STI N Deep Vein Thrombosis N Polycystic ovary syndrome N Anxiety Disorder N Autoimmune disease N Arthritis N Infertility N Polyps N Acid Reflux (GERD) N History of abnormal pap N Cancer N Stroke N Varicosities N Neurologic/Epilepsy N Endometriosis N High Cholesterol N Headaches N Fibromyalgia N Kidney Disease N Heart Problems N Kidney or Bladder Problems N Thyroid Problems N GI Problems N Eating Disorder N Anemia N Art (IVF or FET) N Psychiatric Illness N Ovarian Cancer N Diabetes N Pulmonary (TB, Asthma) N Hepatitis/Liver Disease N No Past Medical History N Eczema N Urinary Tract Infection N Abuse/Domestic Violence N Asthma N Trauma/Violence N Depression/ depression N Heart Disease N Pre-Eclampsia N Hypertension N Osteoporosis N Thrombophilias N Gynecological History Statement/Question Response Flow Heavy Date of LMP 02/13/2023 STIs/STDs N HPV Vaccine N Duration of Flow (days) 5 Current Control Method BCPs Are cycles usually normal Y Sexually Active? Y Menses Monthly Y Date of Last Pap Smear 09/10/2021 Sexual Problems? N Desired Control Method BCPs LMP Approximate Obstetrics History GPAL:G 1 P 1 0 0 1 Type Value Full Term 1 Living 1 Total 1 Past Encounters Encounter ID Performer Location Encounter Start Date Encounter Closed Date Diagnosis/Indication Diagnosis SNOMED-CT Code Diagnosis ICD10 Code Diagnosis Note [id number] Shane Diaz MD [facility] [address] [address] 09/26/2020 14:08:53 09/26/2020 15:09:48 Gynecologic examination [id number] Z01.419 This patient is here for her annual exam. A thorough history was taken. A physical exam was performed. Age appropriat e routine health screening was ordered, performed, and discussed. Recommende d testing was ordered. She was asked to follow up in one year. She will be informed of any test results. Cholestero l - [ Ordered] Pap - today [id number] Shane Diaz MD [facility] [address] [address] 09/10/2021 15:54:20 09/10/2021 17:03:42 Gynecologic examination [id number] Z01.419 This patient is here for her annual exam. A thorough history was taken. A physical exam was performed. Age appropriat e routine health screening was ordered, performed, and discussed. Recommende d testing was ordered. She was asked to follow up in one year. She will be informed of any test results. Cholestero l - [ Ordered] Pap - today [id number] RANGEL Hickman [facility] [address] [address] 02/27/2023 10:06:50 02/27/2023 10:38:54 Gynecologic examination [id number] Z01.419 Take Calcium with Vitamin D 1200mg daily if not receiving in daily diet. It is strongly advised to have an annual flu shot and up can obtain at most pharmacies . If you have not had a TDap shot in the last 10 years you should obtain one as well. Discussed with patient & provided with informatio n regarding Gardisil vaccine to prevent the 4 strains for HPV that cause cervical cancer if under age 26. Encourage safe sexual practices, to use condoms and limit partners if not already in a monogamous relationsh ip. Do monthly self breast exams. Have mammogram yearly or every other year depending on family history. BRCA testing is now available for patients with strong genetic history of female cancer. If interested contact the office. Engage in daily exercise of low impact aerobic exercise 45-60 minutes 4-5 times weekly. Avoid tobacco and illicit drugs as well as using moderation with alcohol intake less than 1-2 8 oz beverages daily. This lifestyle behavior pattern will lead to less health conditions and longer life span. If BMI greater than 25 weight watchers or dietary consult advised. Patient received above instructio ns, and questions have been answered. If you have any questions please call or respond to this email. Patient was made aware of the patient portal and may obtain a paper copy of today's plan if desired. WWEBC - condomswou ld like to restart OCPr/b/a discussed, denies any contraindi cationsrx sent x 12 monthsno hx of abnormal papslast pap 08/2021 - normalopts for paps Q3-5 per asccp guidelines encouraged pt to find out more about fam hx (mother with possible ovarian CA). Genetic testing discussed, handout given to patient.fa sting labs orderedSTI testing orderedRTC in 1 year or sooner if needed Contracept ion care management 783534635 Z30.9 Adult heal th examination 251331664 Z00.00 Sexually t ransmitted infectious disease 1871406 A64 Health Concerns Section Related Observation LastModified by Organization Detai ls LastModified Time None Recorded Concern Status LastModified by Organization Details LastModified Time None Recorded Advance Directives Directive None Recorded Payers Encounter Date Sequence Insurance Name Policy Number Policy Landis Covered Member ID Landis Member ID Guarantor Name 09/26/2020 1 [facility] (MEDICAID HMO) [id number] [facility] [id number] [facility] 09/10/2021 1 [facility] (MEDICAID HMO) [id number] [facility] [id number] [facility] 02/27/2023 1 [facility] (MEDICAID HMO) [id number] [facility] [id number] [facility] Notes Date Note Type Note Provider Name and Address Organization Details Recorded Time 09/26/2020 text/html Annual GYNReport ed bypatient.History:no gynecologic complaints Menstrual cycle:Normal menses Urinary symptoms:No hematuria; No incontinence Vulva:No genital lesion Vagina:Normal vaginal discharge Breast:No breast pain; No breast lump; No nipple discharge Current Contraception:Oral contraceptives Sexual complaints:No sexual complaints; No pain during intercourse; Normal libido Psychological symptoms:No depression; No anxiety Preventive measures:Encourage self breast examination; Encourage regular exercise Shane Diaz MD [address], [place], [address], [facility] 09/26/2020 14:55:05 09/10/2021 text/html Annual GYNReport ed bypatient.History:no gynecologic complaints Menstrual cycle:Normal menses Urinary symptoms:No hematuria; No incontinence Vulva:No genital lesion Vagina:Normal vaginal discharge Breast:No breast pain; No breast lump; No nipple discharge Current Contraception:Satisf ied with current contraception; Oral contraceptives Sexual complaints:No sexual complaints Psychological symptoms:No depression; No anxiety Preventive measures:Encourage self breast examination; Encourage regular exercise Shane Diaz MD [address], [place], [address], [facility] 09/10/2021 17:10:04 02/27/2023 text/html Annual GYNReport ed bypatient.Menstrual cycle:Normal menses Urinary symptoms:No hematuria; No incontinence Vulva:No genital lesion Vagina:Normal vaginal discharge Breast:No breast pain; No breast lump; No nipple discharge Current Contraception:Condom s; stopped OCP 1 year ago, would like to restart denies hx of DVT/PE, HTN, Stroke/MD, cancer, liver disease, or migraine with aura she denies tobacco smoking Sexual complaints:No sexual complaints; No pain during intercourse; Normal libido Menopausal Symptoms:No menopausal symptoms; Normal vaginal lubrication Psychological symptoms:No depression; No anxiety; No PMDD Preventive measures:Encourage self breast examination; Encourage regular exercise; Encourage no tobacco use; Encourage regular mammograms starting age 40Notes:mother with possible ovarian cancer at age 62 RANGEL Hickman [address], [place], [address], [place] [facility] 02/27/2023 10:35:50 OBGyn Episode Ob Episode Information Episode Created Date Number of Fetuses Patient Bloodtype Patient rh Status Prepregnancy Weight lbs Domestic Partner Domestic Partner Phone Father Name Relocation Specialist Status 08/22/19 21 1 CLOSED Fetus Data First Name Last Name Admitted to NICU Weight (g) Sex Living Outcome Pediatric Complications Fetus ID Race Codes Race Delivery Type 3259.96 5704 F Full Term [id number] Vaginal Delivery Neil Calculation Initial Neil Date Initial Exam Date Initial Exam Provider Initial Ultrasound Date Last Menstrual Period Date Ultra Sound Weeks Gestation 0 Eighteen To Twenty Week Neil Update Ultra Sound Date Fundal Height At Umbil Quickening Date Ultra Sound Latest Weeks Gestation Final Neil Confirmed By Final Neil Confirmed Date Final Neil Date Ultra Sound Latest Days Gestation 0 0 Menstrual History Last Menstrual Date Menses Monthly On Bcp Conception Prior Menses Frequency Hcg Plus Date Menarche Onset Age Delivery Information Delivery Date Delivery Type Labor Anesthesia Weeks Gestation Incision Type Labor Labor Length Hrs Delivered By Post Complications Tubal Sterilization Discharge Date Comments 7 38.6 +GBS Discharge Information Feeding Method Contraceptive Method Maternal HG B and HCT Levels
--- OUTSIDE RECORDS SUMMARY | 2024-09-26 14:28 | XMS_ITS | Clinical Summary ---
Author Organization [facility] Address [address] [place] [address] Care Team Providers Care Supervisor [place] Name Role Phone Unavailable Primary Care Provider Unavailabl e Source Comments [facility],non-owned Affiliates and Associated Physician Practices is amultiple site organization consisting of ambulatory clinics and hospital sitesin [place], [place], [place] and [place]. This disclosure is being madepursuant to the Care Everywhere program and may not contain all information available regarding this patient. Last updated 18.[facility] Allergies No known active allergies Medications Be aware that medications may not be up to date on this document. Always verify current medications with the patient. No known medications Social History Tobacco Use Types Packs/Day Years Used Date Smoking Tobacco: Never Smokeless Tobacco: Never Sex and Gender Information Value Date Recorded Sex Assigned at Not on file Gender Identity Not on file Sexual Orientation Not on file Last Filed Vital Signs Vital Sign Reading Time Taken Comments Blood Pressure 112/62 03/06/2017 1:42 PM CDT Pulse 96 03/06/2017 1:42 PM CDT Temperature 37.2 C (99 F) 03/06/2017 1:42 PM CDT Respiratory Rate 16 06/20/2016 12:15 PM TRAINING ADMINISTRATOR Oxygen Saturation - - Inhaled Oxygen Concentration - - Weight 83.9 kg (185 lb) 03/06/2017 1:42 PM CDT Height 157.5 cm (5' 2 ) 03/06/2017 1:42 PM CDT Body Mass Index 33.84 03/06/2017 1:42 PM CDT Plan of Treatment Health Maintenance Due Date Last Done Comments PAP SMEAR 1991 HIV SCREENING 2006 HEPATITIS C SCREENING 03/19/2009 DTAP/TDAP/TD VACCINES (1 - Tdap) 2010 HEPATITIS B VACCINE (1 of 3 - 19+ 3-dose series) 2010 COVID-19 VACCINE (1 - 2023-2 5 season) 2024 INFLUENZA VACCINE (#1) 2024 DEPRESSION SCREENING 06/30/2024 ZOSTER VACCINE (1 of 2) 2041 HIB VACCINE Aged Out No longer eligi ble based on patient's age to complete this topic HPV VACCINE Aged Out No longer eligi ble based on patient's age to complete this topic MENINGOCOCCAL (Group B) VACC INE SHARED DECISION-MAKING Aged Out No longer eligibl e based on patient's age to complete this topic MENINGOCOCCAL GROUPS A/C/Y/W VACCINE Aged Out No longer eligible b ased on patient's age to complete this topic PNEUMOCOCCAL VACCINE Aged Out No long er eligible based on patient's age to complete this topic
--- OUTSIDE RECORDS SUMMARY | 2024-09-26 14:28 | XMS_ITS | Data Portability ---
Author Organization [facility] Address [address] [place] [address] Assessment No assessment recorded. Plan of Treatment Reminders Order Date Submit Date Provider Last Modified By Organization Details Last Modified Time Details Appointments None recorded. Lab None recorded. Referral None recorded. Procedures None recorded. Surgeries None recorded. Imaging None recorded. Medication Orders sertraline 50 mg tablet 2018 019 [facility], [address] [place] [address], [id number], 9 14:13:24 Patient TargetsNo targets recorded. Patient Instructions Encounter Date Encounter Id Patient Instructions Last Modified By Organization Details Last Modified Time 02/02/2019 [id number] anxiety disorder: care instructions Not available 02/02/2019 14:38:06 panic attacks: care instructions Not available 02/02/2019 14:38:06 A healthy lifestyle: care instructions Not available 02/02/2019 14:12:14 I have reviewed the provider's note and I agree with the documented assessment and plan. HLF hlucasfoster Not available 02/02/2019 21:42:09 Reason for Referral None Reported. Results Created Date Observation Date Name Description Value Unit Range Abnormal Flag Note LastModifiedBy Organization Detail LastModifiedTime Result Notes None recorded. Problems Name Problem SNOMED Code Status Onset Date Resolution Date Notes Provider Name and Address Organization Details Recorded Time Anxiety disorder 185485130 Active 019 ASAEL MARTIN Attn: Accounting ,[address] [facility], [place], [address] , [facility] 9 14:11:59 Problem Notes None recorded. Medical Equipment None Reported. Allergies No known drug allergies Medications Name Sig Start Date Stop Date Status Note LastModified by Organization Details LastModified Time sertraline 100 mg tablet Take 1 tablet every day by oral route as directed for 30 days. active Not Available Not Available No t Available lorazepam 0.5 mg tablet 02/12 completed Not Available Not Available Not Available diclofenac sodium 75 mg tablet,del yed release 02/02 completed Not Available Not Available Not Available sertraline 50 mg tablet Take 1 tablet every day by oral route as directed for 30 days. active Not Available Not Available No t Available 07/19 (28) 1 mg-20 mcg (21)/75 mg (7) tablet active Not Available Not Available N ot Available Vitals Date Recorded Body height Body mass index (BMI) Body weight Heart rate Oxygen saturation Oxygen saturation in Arterial blood by Pulse oximetry Systolic blood pressure Diastolic blood pressure Provider Name and Address Organization Details Last Updated DateTime 9 157.48 cm 29.2 kg/m2 04645.0 6 g 72 /min 97 % 97 % 118 mm[Hg] 70 mm[Hg] Linette Boykin MA [facility] 9 14:08:55 Social History Question Answer Notes LastModified by Organizat ion Details LastModified Time Tobacco Smoking Status Former Smoker last at 17 DEYANIRA Lemon [facility] 02/02/2019 14:00:47 Do You Have An Advance Directive? No Information not available 02/02/2019 What Is Your Level Of Alcohol Consumption? None Information not available 02/02/2019 What Is Your Level Of Caffeine Consumption? Moderate Information not available 02/02/2019 Can Child Swim? No Informati on not available 02/02/2019 How Much Tobacco Do You Chew? None Information not available 02/02/2019 Are You Currently Employed? Yes Information not available 02/02/2019 What Type Of Diet Are You Following? REGULAR Information not available 02/02/2019 Which Illicit Or Recreational Drugs Have You Used? None Information not available 02/02/2019 Do You Or Have You Ever Used E-cigarettes Or Vape? Never Used Electronic Cigarettes Information not available 02/02/2019 Education 12 Information no t available 02/02/2019 What Is Your Occupation? [employer] Information not available 02/02/2019 Swimming/diving Yes Informati on not available 02/02/2019 Are There Any Guns Present In Your Home? No Information not available 02/02/2019 Hard Of Hearing Or Deaf In One Or Both Ears? No Information not available 02/02/2019 Legally Blind In One Or Both Eyes? No Information not available 02/02/2019 Live Alone Or With Others? With Others Information not available 02/02/2019 How Many Children Do You Have? 1 Information not available 02/02/2019 Performs Monthly Self-breast Exam? No Information not available 02/02/2019 Do You Use Protection During Sex? No Information not available 02/02/2019 Seat Belts Used Routinely Yes Information not available 02/02/2019 Are You Sexually Active? Yes Information not available 02/02/2019 Smoke Alarm In Home Yes Information not available 02/02/2019 Do You Or Have You Ever Used Smokeless Tobacco? Never Used Smokeless Tobacco Information not available 02/02/2019 How Much Tobacco Do You Smoke? No Information not available 02/02/2019 General Stress Level High Information not available 02/02/2019 Do You Use Sunscreen Routinely? Yes Information not available 02/02/2019 Has Tobacco Cessation Counseling Been Provided? No Information not available 02/02/2019 How Many Years Have You Smoked Tobacco? 0 Information not available 02/02/2019 Sex: Unknown Functional Status Question Answer Note LastModified by Organizat ion Details LastModified Time Are you able to care for yourself? Yes Information not available 02/02/2019 What is your exercise level? Occasional Information not available 02/02/2019 Mental Status None recorded. Family History Relationship Description Onset Age of this Age Resolved Age Notes LastModified by Organization Details LastModified Time Father Hypertensive disorder mother also dnewsomma Not available 02/02/2019 13:59:55 Mother Diabetes mellitus Both brothe rs dnewsomma Not available 02/02/2019 13:59:45 Medical History Condition Response Anxiety Disorder Y Acid Reflux (GERD) Y Headaches Y Depression N Gynecological History Statement/Question Response Flow Moderate Date of LMP 02/02/2019 Frequency of Cycle (Q days) 28 Duration of Flow (days) 4 Current Control Method Other LMP Definite Obstetrics History GPAL:G 1 P 1 0 0 1 Type Value Multiple Births 0 Full Term 1 Induced 0 Spontaneous 0 Premature 0 Living 1 Ectopics 0 Total 1 Past Encounters Encounter ID Performer Location Encounter Start Date Encounter Closed Date Diagnosis/Indication Diagnosis SNOMED-CT Code Diagnosis ICD10 Code Diagnosis Note [id number] MD Nelsy Mesa (Adult Med) [address] [place] [address] 02/02/2019 13:42:05 02/02/2019 14:44:54 Adult health examination 923871362 Z00.00 Anxiety disorder 4202704 06 F41.9 Long history of anxiety but worse over the past two years due to her relationsh ipPatient was started on sertraline 50 mg 2 weeks ago in the ER/urgent care, patient feels like medication is not helping- Advised patient to continue this medication for another 2-4 weeks for its full efficacy, she is to call office or schedule follow-up to assess symptom improvemen t at that time, if not helping appropriat alisa, consider increasing medication dose before switching to new SSRI- Spoke in moderate depth about her relationsh ip issues, told patient she does not deserve to feel this way, encouraged patient to speak with counselor- Provided patient with hand-outs regarding anxiety and panic attacks- Advised patient to try supportive measures at home when panic attack symptoms come on including lying down in a dark quiet room, taking big deep breaths, trying the valsalva maneuver.- Advised to come back to the office or go to the ER if symptoms worsen or develop SI/HI Health Concerns Section Related Observation LastModified by Organization Detai ls LastModified Time None Recorded Concern Status LastModified by Organization Details LastModified Time None Recorded Advance Directives Directive N: Payers Encounter Date Sequence Insurance Name Policy Number Policy Landis Covered Member ID Landis Member ID Guarantor Name 02/02/2019 1 [facility] (MEDICAID HMO) [id number] Shane Meléndez [id number] Shane Meléndez Notes Date Note Type Note Provider Name and Address Organization Details Recorded Time 02/02/2019 text/html Anxiety/Depressi on Reported bypatient.Quality: symptoms worse in the evening;symptoms worse during the day;increased anxiety;panic symptoms Severity:denies suicidal ideations; able to maintain relationships;inte rference with sleep;interference with work; Has had anxiety since 8th grade (started when mom was sick in the hospital) but worse over the past two years because of her relationship with her boyfriend. Has never been hospitalized for anxiety Duration:symptoms lasting over 2 weeks Onset/Timing:gradu al Context:major life stressors;family problems;relations hip stress(boyfriend and baby's father is not happy in relationship and constantly threatening her that he is going to leave her and their child, patient is absolutely in love with him and is constantly worried he is going to leave her. Had to lie about appointment today, boyfriend does not believe seeing the doctor or taking medications) Modifying Factors:Has not been on medications previously or seen a counselor or psychiatrist Associated Symptoms:denies homicidal ideations; no significant weight gain; no significant weight loss; no visual/auditory hallucinations; no delusions; no shortness of breath; no isolation; appetite good; maintaining functionality;emot ional lability;anxiety;h ypersensitivity;lo neliness;insomnia; sleep disturbances;low self-esteemNotes:W ent to ER/urgent care 2 weeks ago for a panic attack, was given 3 days worth of lorazepam and started on sertraline 50 mg. Today, patient is requesting to be on a medication like lorazepam but less addicting, felt much better while on the lorazepam. Also, worried the sertraline is not working, almost feels like her anxiety is worse with this medication. Patient does not think she can see a counselor at this moment, boyfriend would not understand or probably allow this. Mom is present in the room and is requesting medication for her too because her symptoms and mood swings are getting out of hand. Mother states she would like to throat punch daughter's boyfriend but also knows her daughter is choosing to stay with this man because she loves him. 28 year old CF presents today for anxiety and panic attacks. She is a new patient. Accompanied by her mother and 2 year old daughter today. Christianne Vee MD Attn: Accounting,[address] [facility], [place], [address], [facility] 02/02/2019 21:42:12 OBGyn Episode No OBEpisode recorded.
--- OUTSIDE RECORDS SUMMARY | 2024-09-26 14:28 | XMS_ITS | Clinical Summary ---
Author Organization [facility] Address [address] [place] [address] Phone Care Team Providers Care Department Administrator Name Role Phone Provider, Unknown Primary Care Provider Unavaila ble Social History Tobacco Use Types Packs/Day Years Used Date Smoking Tobacco: Never Assessed Comments Unknown Sex and Gender Information Value Date Recorded Sex Assigned at Not on file Legal Sex Female 2:41 PM CDT Gender Identity Not on file Sexual Orientation Not on file Plan of Treatment Not on file Care Teams Department Administrator Relationship Specialty Start Date End Date Provider, Unknown UNKNOWN PCP - General 10/25/16
[2024-09-26 14:51] VITALS: BP 110/79; PULSE 73; RESP 16; TEMP 36.3
--- NOTE | 2024-09-26 15:43 | PC.NURSE ---
Na to calling for room placement
--- NOTE | 2024-09-26 15:57 | PC.NURSE ---
NA for room placement-2nd call
--- OUTSIDE RECORDS SUMMARY | 2024-09-26 16:07 | XMS_ITS | Continuity of Care Document ---
Author Organization [facility] Address [address] [place] [address] Phone Care Team Providers Care Galley Worker Name Role Phone Barrett OD, Ben Unavailable Unavailable Procedures Procedure Date CL Replacement - [employer] Disp W/BW Soft Sales Tax Advance Directives Directive Yes / No Effective Date File Name No Information Encounters Encounter Description Practice Location Reason(s) For Visit Diagnoses Date Provider Providers Copied on Encounter [facility], [address], [place], [place], [id number], [place] tel:[phone] No Information 2-[address] 7 Barrett OD Ben. [address] , [address], [place], [address], [place]. tel:[phone] Family History Family Member Type Diagnosis Age At Onset No Information Payers Payer name Insurance type Covered libertarian ID Authoriza tion(s) No Information Social History Type Description Quantity Date Captured Comments Sex Female Smoking Status No Information Chief Complaint And Reason For Visit No Information Reason For Referral Reason For Referral No Information History Of Present Illness Encounter Date Complaint History Of Prese nt Illness No Information Functional Status Date Functional Assessmen t No Information Instructions Date Instruction Additional Infor mation No Information Assessments Type Assessment Date No Information Patient Care Teams Name Effective Dates (start - stop) Status Members No Information
--- OUTSIDE RECORDS SUMMARY | 2024-09-26 16:07 | XMS_ITS | Clinical Summary ---
Author Organization [facility] Address [address] [place] [address] Phone Care Team Providers Care Radiation / Chemistry Technician Name Role Phone Provider, Unknown Primary Care Provider Unavaila ble Social History Tobacco Use Types Packs/Day Years Used Date Smoking Tobacco: Never Assessed Comments Unknown Sex and Gender Information Value Date Recorded Sex Assigned at Not on file Legal Sex Female 2:41 PM CDT Gender Identity Not on file Sexual Orientation Not on file Plan of Treatment Not on file Care Teams Radiation / Chemistry Technician Relationship Specialty Start Date End Date Provider, Unknown UNKNOWN PCP - General 10/25/16
--- OUTSIDE RECORDS SUMMARY | 2024-09-26 16:07 | XMS_ITS | Clinical Summary ---
Author Organization [facility] Address [address] [place] [address] Care Team Providers Care Nurse Educator Name Role Phone Unavailable Primary Care Provider Unavailabl e Source Comments [facility],non-owned Affiliates and Associated Physician Practices is amultiple site organization consisting of ambulatory clinics and hospital sitesin [place], [place], [place] and [place]. This disclosure is being madepursuant to the Care Everywhere program and may not contain all information available regarding this patient. 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
== END 2024-09-26 15:57 | disposition left against medical advice (07) ==
PROVIDERS: PCP Nurse Practitioner Family
DX: R41.9 Unspecified symptoms and signs involving cognitive functions and awareness (principal)
CPT/HCPCS: 99199